=== PATIENT | female | born 2000 | race Caucasian/White ===

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

== ENCOUNTER 2019-04-15 13:53 | Emergency (ER) | payer MEDICAID ==
[2019-04-15 14:37] VITALS: BP 120/75; PULSE 73
--- NOTE | 2019-04-15 15:29 | EDM.PDOC ---
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 She had her last normal period the end of February. She has had a miscarriage with her first preg, she then had a baby and she is now preg again. Her blood type is bpos. Onset: Today, Other ( She started bleeding about 1 thirty today. ) Duration: Hour(s): Location: Reports: Abdomen Associated Symptoms: Reports: No Other Symptoms Lower Abdomen Pain Score (Numeric/FACES): 2 - Related Data Allergies Allergy/AdvReac Type Severity Reaction Status Date / Time No Known Allergies Allergy Verified 04/15/19 14:40 Home Meds: Home Meds NK [No Known Home Meds] 12/07/16 [History] Past Medical History CIRCUS TRAIN SUPERVISOR History: Reports: , Spontaneous Other CIRCUS TRAIN SUPERVISOR History: Gravada3 para1 Psychiatric History: Reports: Anxiety Social & Family History - Tobacco Use Smoking Status *Q: Never Smoker Second Hand Smoke Exposure: No - Caffeine Use Caffeine Use: Reports: Soda - Recreational Drug Use Recreational Drug Use: No - Living Situation & Occupation Living situation: Reports: Single, with Family Occupation: Student ED ROS GENERAL - Review of Systems Review Of Systems: Unable To Obtain Constitutional: Reports: No Symptoms HEENT: Reports: No Symptoms Respiratory: Reports: No Symptoms Cardiovascular: Reports: No Symptoms Endocrine: Reports: No Symptoms GI/Abdominal: Reports: Other ( some cramping present. ) Musculoskeletal: Reports: No Symptoms Skin: Reports: No Symptoms ED EXAM, GI/ABD - Physical Exam Exam: See Below Text/Narrative:: pt arrived with vag bleeding. She had her last menstrual period the end of February. She is having cramping. Exam Limited By: No Limitations General Appearance: Alert, Anxious, Mild Distress Ears: Normal TMs Throat/Mouth: Normal Inspection Head: Atraumatic Neck: Normal Inspection Respiratory/Chest: No Respiratory Distress Cardiovascular: Regular Rate, Rhythm GI/Abdominal Exam: Soft, Non-Tender (Female) Exam: Deferred Rectal (Female) Exam: Deferred Back Exam: Normal Inspection Extremities: Normal Inspection Course - Vital Signs Last Recorded V/S: Last Vital Signs Temp 36.1 C 04/15/19 14:46 Pulse 73 04/15/19 14:46 Resp 16 04/15/19 14:46 BP 120/75 04/15/19 14:46 Pulse Ox 97 04/15/19 14:46 - Orders/Labs/Meds Orders: Active Orders 24 hr Category Date Time Status OB 1st Tri Sgl 1st Gest [US] Stat Exams 04/15/19 16:02 Ordered Labs: Laboratory Tests 04/15/19 04/15/19 04/15/19 Range/Units 15:32 15:32 15:32 WBC 9.2 (4.5-11.0) K/uL RBC 4.51 (3.30-5.50) M/uL Hgb 12.6 (12.0-15.0) g/dL Hct 38.8 (36.0-48.0) % MCV 86 (80-98) fL MCH 28 (27-31) pg MCHC 33 (32-36) % Plt Count 393 (150-400) K/uL Neut % (Auto) 64 (36-66) % Lymph % (Auto) 27 (24-44) % [place] % (Auto) 6 (2-6) % Eos % (Auto) 2 (2-4) % Baso % (Auto) 0 (0-1) % Sodium 140 (140-148) mmol/L Potassium 4.1 (3.6-5.2) mmol/L Chloride 104 (100-108) mmol/L Carbon Dioxide 26 (21-32) mmol/L Anion Gap 10.3 (5.0-14.0) mmol/L BUN 12 (7-18) mg/dL Creatinine 0.6 (0.6-1.0) mg/dL Est Cr Clr Drug Dosing 129.15 mL/min Estimated GFR (MDRD) > 60 (>60) Glucose 100 (74-106) mg/dL Calcium 8.8 (8.5-10.1) mg/dL Total Bilirubin 0.3 (0.2-1.0) mg/dL AST 18 (15-37) U/L ALT 22 (12-78) U/L Alkaline Phosphatase 135 H (46-116) U/L Total Protein 7.5 (6.4-8.2) g/dL Albumin 3.6 (3.4-5.0) g/dL Globulin 3.9 H (2.3-3.5) g/dL Albumin/Globulin Ratio 0.9 L (1.2-2.2) HCG, Quant 8 H (0-6) mIU/mL Urine Color Urine Appearance Urine pH (4.5-8.0) Ur Specific [place] (1.008-1.030) Urine Protein (NEGATIVE) mg/dL Urine Glucose (UA) (NEGATIVE) mg/dL Urine Ketones (NEGATIVE) mg/dL Urine Occult Blood (NEGATIVE) Urine Nitrite (NEGATIVE) Urine Bilirubin (NEGATIVE) Urine Urobilinogen (NORMAL) mg/dL Ur Leukocyte Esterase (NEGATIVE) Urine RBC (0-5) Urine WBC (0-5) Ur Epithelial Cells Amorphous Sediment Urine Bacteria Urine Mucus 04/15/19 Range/Units 16:01 WBC (4.5-11.0) K/uL RBC (3.30-5.50) M/uL Hgb (12.0-15.0) g/dL Hct (36.0-48.0) % MCV (80-98) fL MCH (27-31) pg MCHC (32-36) % Plt Count (150-400) K/uL Neut % (Auto) (36-66) % Lymph % (Auto) (24-44) % [place] % (Auto) (2-6) % Eos % (Auto) (2-4) % Baso % (Auto) (0-1) % Sodium (140-148) mmol/L Potassium (3.6-5.2) mmol/L Chloride (100-108) mmol/L Carbon Dioxide (21-32) mmol/L Anion Gap (5.0-14.0) mmol/L BUN (7-18) mg/dL Creatinine (0.6-1.0) mg/dL Est Cr Clr Drug Dosing mL/min Estimated GFR (MDRD) (>60) Glucose (74-106) mg/dL Calcium (8.5-10.1) mg/dL Total Bilirubin (0.2-1.0) mg/dL AST (15-37) U/L ALT (12-78) U/L Alkaline Phosphatase (46-116) U/L Total Protein (6.4-8.2) g/dL Albumin (3.4-5.0) g/dL Globulin (2.3-3.5) g/dL Albumin/Globulin Ratio (1.2-2.2) HCG, Quant (0-6) mIU/mL Urine Color Yellow Urine Appearance Clear Urine pH 7.0 (4.5-8.0) Ur Specific [place] 1.015 (1.008-1.030) Urine Protein Negative (NEGATIVE) mg/dL Urine Glucose (UA) Normal (NEGATIVE) mg/dL Urine Ketones Negative (NEGATIVE) mg/dL Urine Occult Blood Moderate (NEGATIVE) Urine Nitrite Negative (NEGATIVE) Urine Bilirubin Negative (NEGATIVE) Urine Urobilinogen Normal (NORMAL) mg/dL Ur Leukocyte Esterase Negative (NEGATIVE) Urine RBC 20-30 H (0-5) Urine WBC 0-5 (0-5) Ur Epithelial Cells Few Amorphous Sediment Not seen Urine Bacteria Moderate Urine Mucus Moderate - Re-Assessments/Exams Free Text/Narrative Re-Assessment/Exam: 04/15/19 17:26 pt had a very low quantative HCG at 8. She had a Us which did not show alot of retained tissue. Departure - Departure Time of Disposition: 17:24 Disposition: Home, Self-Care 01 Condition: Fair Clinical Impression: Incomplete miscarriage - Discharge Information Referrals: PCP,None [Primary Care Provider] - Forms: ED Department Discharge Care Plan Goals: rtc if pt has heavy vag bleeding, appt with Lesvia Lopes to recheck on tue and discuss control. - My Orders Last 24 Hours: My Active Orders 04/15/19 16:02 OB 1st Tri Sgl 1st Gest [US] Stat - Assessment/Plan Last 24 Hours: My Active Orders 04/15/19 16:02 OB 1st Tri Sgl 1st Gest [US] Stat
--- NOTE | 2019-04-15 18:06 | CRLUS ---
TECHNIQUE: Transabdominal pelvic ultrasound. INDICATION: , vaginal bleeding. Unknown LMP. Beta HCG of 8. FINDINGS: Uterus is anteverted and measures 7.2 x 3.6 x 4.7 cm. Normal endometrial stripe thickness of 3 mm. No intrauterine is seen, however and beta HCG of 8, an intrauterine would not be expected expected to be seen by ultrasound. Both maternal ovaries appear normal and have normal color and spectral Doppler flow. IMPRESSION: No intrauterine identified, however it may be too early. Dictated by Valerio Mathis MD @ 04/15/2019 6:04:10 PM Dictated by: Valerio Mathis MD @ 04/15/2019 18:04:46 (Electronically Signed)
== END 2019-04-15 17:29 | disposition home or self-care (01) ==
LOC: JP.ED 13:53
DX: O03.4 Incomplete spontaneous abortion without complication (principal)
CPT/HCPCS: 36415; 76801; 80053; 81001; 84702; 85025; 99284-25

== ENCOUNTER 2023-06-25 10:44 | Emergency (ER) | payer MEDICAID ==
[2023-06-25 12:21] VITALS: BP 121/79; PULSE 71
== END 2023-06-25 12:15 | disposition home or self-care (01) ==
LOC: JP.ED 10:44
DX: L29.9 Pruritus, unspecified (principal); B86 Scabies; Z86.16 Personal history of COVID-19
CPT/HCPCS: 99282

== ENCOUNTER 2025-06-16 20:17 | Emergency (ER) | payer MEDICAID ==
[2025-06-16 20:44] VITALS: BP 120/92; PULSE 87
[2025-06-16] MEDS: Lidocaine/Epineph/Tetracaine 3 ML Syringe TOP ONE (21:00)
[2025-06-16] MEDS: Bacitracin Oint 1 GM U/D Packet TOP ONE (21:22)
== END 2025-06-16 21:38 | disposition home or self-care (01) ==
LOC: JP.ED 20:17
DX: S91.312A Laceration without foreign body, left foot, initial encounter (principal); R23.8 Other skin changes; W26.0XXA Contact with knife, initial encounter
CPT/HCPCS: 12001; 99282; A9270; J2003